=== PATIENT | female | born 1950 | race Caucasian/White ===

== ENCOUNTER → 2017-10-10 | Outpatient (CLI) | payer MEDICARE ==
[~2017-10-10] MED LIST: ADVI200C9
--- NOTE | 2017-10-10 19:09 | EKG ---
Date Performed: 10/10/2017 Time Performed: 09:18:18 PTAGE: 66 years EKG: Sinus rhythm NONSPECIFIC ST & T-WAVE ABNORMALITY BORDERLINE ECG PREVIOUS TRACING : 10/17/2006 13.48 Since the previous tracing rate slower DOCTOR: David Nunes Interpretating Date/Time 10/10/2017 19:08:57
== END ==
LOC: HCAV 09:04
PROVIDERS: ATTEND Internal Medicine
DX: Z01.810 Encounter for preprocedural cardiovascular examination (principal)
CPT/HCPCS: 93005

== ENCOUNTER → 2017-10-18 | Day surgery (SDC) | payer MEDICARE ==
[~2017-10-18] MED LIST changes: +DEXAMETHASONE SOD PHOS 4 MG/ML VIAL ONE; +EPINEPHrine HCL (1:1000) 1 MG/ML VIAL ONE; +LACTATED RINGER'S 1000 ML INJ 1,000 ML ONE; +MIDAZOLAM HCL 2 MG/2 ML VIAL ONE; +MOXIFLOXACIN 0.5% OPHT SOLN 3 ML BTL ONE; +ONDANSETRON HCL 4 MG/2 ML VIAL IV PUSH ONE; +PHENYLEPHRINE HCL 10% OPTH SOLN 5 ML BTL ONE; +PROPOFOL 100 MG/10 ML INJ IV ONE; +SODIUM CHLORIDE 0.9% INJ 10 ML ONE; +TETRACAINE 0.5% OPTH SOLN 15 ML BTL ONE; +TETRACAINE 0.5% OPTH SOLN 4 ML BTL ONE; +TOBRAMYCIN/DEXAMETHASONE OPTH OINT 3.5 GM TUBE ONE; +TRIAMCINOLONE ACETONIDE 40 MG/ML VIAL ONE; +ceFAZolin INJ 1,000 MG VIAL ONE; +prednisoLONE ACETATE 1% OPHT SUSP 5 ML BTL ONE
--- NOTE | 2017-10-18 09:19 | MP ---
cc: Rhys Murray MD DATE OF OPERATION: 10/18/2017 PREOPERATIVE DIAGNOSIS: Full thickness macula hole, left eye. POSTOPERATIVE DIAGNOSIS: Full thickness macula hole, left eye. PROCEDURE PERFORMED: Pars plana vitrectomy, macular hole closure, removal of internal limiting membrane, insertion of 10% C3F8 gas, left eye. COMPLICATIONS: None. ESTIMATED BLOOD LOSS: Less than 1 mL. ANESTHESIA: Dr. Wagner general. INDICATIONS FOR PROCEDURE: This is a delightful patient who presented with significant visual loss of her left eye for unknown duration. The patient was found to have a full thickness macular hole which appears to have been present for some time. The patient elected for surgical correction understanding the risks, benefits and alternatives and that some visual field defect will likely remain. PROCEDURE NOTE: After informed consent was obtained, the patient was brought to the operating room. General anesthesia was established. The left eye was prepped and draped in sterile fashion with Betadine in the conjunctival fornix. A three port pars plana vitrectomy was established with self-retaining infusion cannula. Core vitreous was evacuated and vitreous traction was relieved as posterior vitreous detachment was created. The ILM was highlighted with ICG and removed with ILM forceps. Scleral depression examination revealed no peripheral retinal holes, tears or detachment. Air-fluid exchange was carried out and 10% C3F8 gas was instilled. Trocars were removed and sclerotomies closed. Subconjunctival injection of Ancef and betamethasone were given. The eye was patched with tobramycin ointment. The patient was brought to recovery room in stable condition and is to continue followup with [facility] for her postoperative care. MD ANNA Sanders/KERI , 09:04 AM , 09:17 AM
== END | disposition home or self-care (01) ==
LOC: ESDC 06:26
PROVIDERS: ATTEND Ophthalmology
DX: H35.342 Macular cyst, hole, or pseudohole, left eye (principal)
CPT/HCPCS: 00145; 67042; J0171; J0690; J1100; J2250; J2405; J3010; J7120; J3301

== ENCOUNTER 2017-10-29 14:44 | Emergency (ER) | payer MEDICARE ==
[~2017-10-29] VITALS: Ht 157.5 cm; Wt 55.0 kg
[~2017-10-29 14:44] MED LIST changes: -DEXAMETHASONE SOD PHOS 4 MG/ML VIAL ONE; -EPINEPHrine HCL (1:1000) 1 MG/ML VIAL ONE; -LACTATED RINGER'S 1000 ML INJ 1,000 ML ONE; -MIDAZOLAM HCL 2 MG/2 ML VIAL ONE; -MOXIFLOXACIN 0.5% OPHT SOLN 3 ML BTL ONE; -ONDANSETRON HCL 4 MG/2 ML VIAL IV PUSH ONE; -PHENYLEPHRINE HCL 10% OPTH SOLN 5 ML BTL ONE; -PROPOFOL 100 MG/10 ML INJ IV ONE; -SODIUM CHLORIDE 0.9% INJ 10 ML ONE; -TETRACAINE 0.5% OPTH SOLN 15 ML BTL ONE; -TETRACAINE 0.5% OPTH SOLN 4 ML BTL ONE; -TOBRAMYCIN/DEXAMETHASONE OPTH OINT 3.5 GM TUBE ONE; -TRIAMCINOLONE ACETONIDE 40 MG/ML VIAL ONE; -ceFAZolin INJ 1,000 MG VIAL ONE; -prednisoLONE ACETATE 1% OPHT SUSP 5 ML BTL ONE
[2017-10-29 14:53] VITALS: BP 189/111; PULSE 86; RESP 16; TEMP 97.9; O2SAT 98
[2017-10-29] MEDS ORDERED: ALPR0.25 PO (15:15)
[2017-10-29] MEDS ORDERED: LIPI10TA PO (15:15)
[2017-10-29] MEDS ORDERED: CALC1TAB87 PO (15:15)
[2017-10-29] MEDS ORDERED: VITA2000 PO (15:15)
[2017-10-29] MEDS ORDERED: AMLO10TA2 PO (15:15)
[2017-10-29] MEDS ORDERED: SYSTSOL EACH EYE (15:15)
[2017-10-29] MEDS ORDERED: VITACAP7 PO (15:15)
[2017-10-29] MEDS ORDERED: MELA1TAB18 PO (15:15)
[2017-10-29] MEDS ORDERED: OCUVCAP2 PO (15:15)
[2017-10-29] MEDS ORDERED: VITA500T83 PO (15:15)
--- NOTE | 2017-10-29 15:29 | PD ---
HPI Chief Complaint: Fall Time Seen by Provider: 15:13 Travel History International Travel<30 days: No Contact w/Intl Traveler<30days: No Traveled to known affect area: No History of Present Illness HPI 67-year-old female here with right wrist and hand pain after she fell off of a stepladder from approximately 2 feet yesterday. She denies head injury or loss of consciousness. She denies paresthesia or weakness of the extremity. Symptom severity is moderate. Pain is aggravated by movement of the wrist and palpation of the forearm. Pain is relieved with rest. She denies headache, visual changes, neck pain, chest pain, shortness of breath, abdominal pain, paresthesia or weakness of the extremities. PFSH Past Medical History Arthritis: Yes Asthma: No Autoimmune Disease: No Blood Disorders: No Anxiety: Yes Heart Rhythm Problems: No Cardiovascular Problems: No High Cholesterol: Yes Chemotherapy: No Chest Pain: No Congestive Heart Failure: No COPD: No Cerebrovascular Accident: No Diminished Hearing: No Endocrine: No GERD: No Glaucoma: No Genitourinary: No Hiatal Hernia: No Hypertension: Yes Immune Disorder: No Kidney Stones: No Musculoskeletal: Yes Neurologic: No Psychiatric: No Reproductive: No Respiratory: No Immunizations Current: Yes Migraines: No Myocardial Infarction: No Radiation Therapy: No Renal Failure: No Seizures: No Sickle Cell Disease: No Sleep Apnea: No Ulcer: No Tetanus Vaccination: Unknown Influenza Vaccination: No ?: Not Menopausal: Yes Past Surgical History Abdominal Surgery: No AICD: No Appendectomy: No Arteriovenous Shunt: No Body Medical Devices: pt states enlarged liver Cardiac Surgery: No Cholecystectomy: No Ear Surgery: No Endocrine Surgery: No Eye Surgery: Yes (RETINA CATARACTS) Genitourinary Surgery: No Gynecologic Surgery: No Insulin Pump: No Joint Replacement: No Oral Surgery: Yes (TONSILLECTOMY A CHILD.) Pacemaker: No Thoracic Surgery: No Tonsillectomy: Yes Social History Alcohol Use: No (PROB IN PAST) Tobacco Use: Yes (1 PK) Allergies-Medications (Allergen,Severity, Reaction): Coded Allergies: acetaminophen (Unverified Allergy, Severe, LIVER FAILURE, 10/29/17) codeine (Unverified Allergy, Severe, 10/29/17) Reported Meds & Prescriptions Reported Meds & Active Scripts Active Reported Lipitor (Atorvastatin Calcium) 10 Mg Tab 10 Mg PO HS Systane Opth Drops (Polyethylene Glycol-Propylene Glycol Opth Drp) 0.4-0.3% Soln 1-2 Drop EACH EYE PRN PRN Alprazolam 0.25 Mg Tab 0.25 Mg PO Q8H PRN Amlodipine (Amlodipine Besylate) 10 Mg Tab 10 Mg PO DAILY B Complex (B-Complex Vitamins) 1 Cap 1 Cap PO DAILY Melatonin 10 Mg-1 Mg Tab 10 Mg PO HS PRN Ocuvite Adult 50+ (Multiple Vitamins W/ Minerals) 1 Cap 1 Cap PO DAILY Vitamin D3 (Cholecalciferol) 2,000 Unit Cap 2,000 Units PO DAILY Vitamin C ER (Ascorbic Acid) 500 Mg Trip 1,000 Mg PO BID Calcium 600 with Vitamin D (Calcium Carbonate-Cholecalciferol) 600-400 mg-Unit Tab 1 Tab PO DAILY Review of Systems Except as stated in HPI: all other systems reviewed are Neg General / Constitutional: No: Fever Eyes: No: Visual changes HENT: No: Headaches Cardiovascular: No: Chest Pain or Discomfort Respiratory: No: Shortness of Breath Gastrointestinal: No: Abdominal Pain Genitourinary: No: Dysuria Physical Exam Narrative GENERAL: Alert and well-appearing 67-year-old female SKIN: Warm and dry. HEAD: Normocephalic. Atraumatic EYES: Pupils equal, round, reactive to light. EOMs intact.. No injection or drainage. NECK: Supple, trachea midline. No cervical midline tenderness. CARDIOVASCULAR: Regular rate and rhythm RESPIRATORY: Breath sounds equal bilaterally. No accessory muscle use. No rib tenderness. Equal and even chest rise. GASTROINTESTINAL: Abdomen soft, non-tender, nondistended. MUSCULOSKELETAL: No cyanosis, or edema. Right upper extremity: Notable tenderness, mild swelling, ecchymosis to the distal forearm and dorsal aspect of the hand. No obvious deformity. Compartments are soft. 2+ radial pulse. Patient can freely move the fingers. Range of motion of the wrist causes pain. Normal sensation. Brisk cap refill. BACK: Nontender without obvious deformity. No CVA tenderness. NEUROLOGICAL: Awake and alert. No cranial nerve deficits. Motor and sensory grossly within normal limits. Five out of 5 muscle strength in all muscle groups. Normal speech. Data Data Last Documented VS Vital Signs Date Time Temp Pulse Resp B/P (MAP) Pulse Ox O2 Delivery O2 Flow Rate FiO2 10/29/17 14:53 97.9 86 16 189/111 (264) 98 Orders Orders Forearm (2vws) (10/29/17 ) Hand, Complete ([id number]) (10/29/17 ) Splint Or Brace Apply/Monitor (10/29/17 15:55) Sling Cradle Arm (10/29/17 ) Fiberglass Sugartong Sp Ad Arm (10/29/17 ) MDM Medical Decision Making Medical Screen Exam Complete: Yes Emergency Medical Condition: Yes Differential Diagnosis Forearm fracture, wrist fracture, metacarpal fracture, contusion, sprain Narrative Course 67-year-old female with injury to the right upper extremity caused by a fall from approximately 2 feet yesterday. No head injury or loss of consciousness. She has a normal neurologic exam. The extremity is neurovascularly intact. X-ray forearm/hand: Fracture of the distal radius extending into the radiocarpal joint. Findings were discussed with patient. Sugar tong splint was applied by histology technician. Explained the importance and prompt follow-up needed with orthopedics. Patient agrees to schedule orthopedic follow-up tomorrow. Diagnosis Primary Impression: Distal radius fracture Qualified Codes: S52.501A - Unspecified fracture of the lower end of right radius, initial encounter for closed fracture Referrals: Freddy Cummins MD Orthopedist Additional Instructions: Splint must stay in place until follow-up with orthopedist. Call tomorrow to schedule a follow-up appointment. Keep the extremity elevated and sling. Pain medication as needed. Scripts Hydrocodone-Acetaminophen (Ambia) 5 Mg-325 Mg Tab 1 TAB PO Q6H Y for PAIN, #14 TAB 0 Refills Prov: Katerin Isaac 10/29/17 Disposition: 01 DISCHARGE HOME Condition: Stable Katerin Isaac Oct 29, 2017 15:29
--- NOTE | 2017-10-29 16:16 | RADRPT ---
EXAM DATE/TIME: 10/29/2017 15:35 [facility] COMPARISON: No previous studies available for comparison. INDICATIONS : Right forearm pain; fall off step yesterday. MEDICAL HISTORY : None. SURGICAL HISTORY : None. ENCOUNTER: Initial ACUITY: 2 days PAIN SCORE: 7/10 LOCATION: Right forearm. FINDINGS: Comminuted nondisplaced fracture is identified through the distal right radius extending into the rad iocarpal joint. The right radial and ulnar shafts are otherwise intact. The elbow joint is intact. CONCLUSION: Fractured distal right radius extending into the radiocarpal joint. Edwin Barnett MD on October 29, 2017 at 16:13 Board Certified Radiologist. This report was verified electronically.
--- NOTE | 2017-10-29 16:18 | RADRPT ---
EXAM DATE/TIME: 10/29/2017 15:35 [facility] COMPARISON: FOREARM RIGHT (2VWS), October 29, 2017, 15:35. INDICATIONS : Right hand pain; fall off step yesterday. MEDICAL HISTORY : SURGICAL HISTORY : None. ENCOUNTER: Initial ACUITY: 2 days PAIN SCORE: 7/10 LOCATION: Right hand. FINDINGS: Significant soft tissue swelling is identified surrounding the wrist joint. There is a nondisplaced f racture of the distal right radius extending into the radiocarpal joint. Radiocarpal alignment is int act. Significant soft tissue swelling is seen along the metacarpal region of the hand especially aj g the dorsum. Significant arthropathy is seen in the interphalangeal joints. The arthropathic changes are characteristic of osteoarthritis. CONCLUSION: 1. Nondisplaced fracture of the distal right radius. 2. Significant right wrist and hand soft tissue swelling 3. 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 Edwin Barnett MD on October 29, 2017 at 16:14 Board Certified Radiologist. This report was verified electronically.
[2017-10-29] MEDS ORDERED: NORC5TAB PO (16:29)
== END 2017-10-29 17:11 | disposition home or self-care (01) ==
LOC: PHEFT 14:44
DX: S52.501A Unspecified fracture of the lower end of right radius, initial encounter for closed fracture (principal); W11.XXXA Fall on and from ladder, initial encounter; I10 Essential (primary) hypertension; E78.00 Pure hypercholesterolemia, unspecified; M19.90 Unspecified osteoarthritis, unspecified site; F41.9 Anxiety disorder, unspecified; F17.200 Nicotine dependence, unspecified, uncomplicated; Z88.5 Allergy status to narcotic agent; Z79.899 Other long term (current) drug therapy
CPT/HCPCS: 29125; 73090; 73130; 99283